=== PATIENT | male | born 1970 | race Caucasian/White ===

== ENCOUNTER 2019-02-16 16:11 | Inpatient (IN) | payer MEDICAID ==
[~2019-02-16] VITALS: Ht 182.9 cm; Wt 93.2 kg
[~2019-02-16 16:11] MED LIST: ASPI81TA52 PO; BUPR300T54 PO; DILT180C53 PO; DILTIAZEM XT PO; DOXE50CA4 PO; FURO-150 PO; FURO40TA4 PO; GABA-532 PO; LISI-600 PO; NABU500T2 PO; POTA20TA19 PO
[2019-02-16] MEDS ORDERED: cloNIDine 0.1 mg tablet PO ONE (16:35)
[2019-02-16] MEDS ORDERED: ipratropium/albuterol 3ml nebule NEB ONE (16:35)
[2019-02-16] MEDS ORDERED: furosemide 10 MG/1 ML 10ml inj IV ONE (16:35)
[2019-02-16 16:41] LABS: BASOPHILS # (AUTO) 0.1 X10'3 (0-0.2); BASOPHILS % (AUTO) 0.9 % (0-1); EOSINOPHILS # (AUTO) 0.1 X10'3 (0-0.9); EOSINOPHILS % (AUTO) 1.2 % (0-6); HEMATOCRIT 44.5 % (42.0-52.0); HEMOGLOBIN 14.5 g/dl (14.0-17.9); LYMPHOCYTES # (AUTO) 1.2 X10'3 (1.1-4.8); LYMPHOCYTES % (AUTO) 18.2 % (21-51); MEAN CORPUSCULAR HEMOGLOBIN 26.5 PG (27.0-31.0); MEAN CORPUSCULAR HGB CONC 32.5 g/dL (33.0-36.5); MEAN CORPUSCULAR VOLUME 81.5 FL (78-98); MEAN PLATELET VOLUME 7.2 FL (7.4-10.4); MONOCYTES # (AUTO) 0.4 X10'3 (0-0.9); MONOCYTES % (AUTO) 6.4 % (2-12); NEUTROPHILS # (AUTO) 4.7 X10'3 (1.8-7.7); NEUTROPHILS % (AUTO) 73.3 % (42-75); PLATELET COUNT 287 X10'3 (140-440); RED BLOOD COUNT 5.46 X10'6 (4.70-6.10); RED CELL DISTRIBUTION WIDTH 15.9 % (11.5-14.5); WHITE BLOOD COUNT 6.4 X10'3 (4.5-11.0)
[2019-02-16] MEDS ORDERED: carvedilol 6.25mg tablet PO ONE (16:45)
[2019-02-16 16:47] LABS: PARTIAL THROMBOPLASTIN TIME 30 SECONDS (22-32)
[2019-02-16 16:50] LABS: ALANINE AMINOTRANSFERASE 86 U/L (12-78); ALBUMIN 3.7 G/DL (3.4-5.0); ALKALINE PHOSPHATASE 121 IU/L (46-116); ANION GAP 11 (8-16); ASPARTATE AMINO TRANSFERASE 42 U/L (10-37); BILIRUBIN,TOTAL 1.5 MG/DL (0.1-1.0); BLOOD UREA NITROGEN 11 MG/DL (7-18); CHLORIDE 101 MMOL/L (99-107); CREATININE 1.37 MG/DL (0.60-1.10); GLUCOSE 117 MG/DL (70-104); POTASSIUM 4.1 MMOL/L (3.5-5.1); SODIUM 136 MMOL/L (135-145); TOTAL CARBON DIOXIDE 23.6 MMOL/L (24-32); TOTAL PROTEIN 7.3 G/DL (6.4-8.2); eGFR 55 ML/MIN
[2019-02-16] MEDS ORDERED: LISI40TA4 PO (18:30)
[2019-02-16] MEDS ORDERED: CARV6.252 PO (18:30)
[2019-02-16] MEDS ORDERED: FURO-150 PO (18:37)
[2019-02-16] MEDS ORDERED: POTA20TA19 PO (18:37)
--- NOTE | 2019-02-16 20:15 | NUR ---
dr green at bedside for admission. pts family now gone for the night. current vss.
[2019-02-16] MEDS ORDERED: NO HOME MEDS (20:27)
[2019-02-16] MEDS ORDERED: ondansetron/PF 4mg/2ml inj IV PRN (20:35)
[2019-02-16] MEDS ORDERED: magnesium hydroxide 30ml (MOM) UD suspension PO PRN (20:35)
[2019-02-16] MEDS ORDERED: mag hydrox/Alum hydrox/simeth 30ml oral suspension PO PRN (20:35)
[2019-02-16] MEDS ORDERED: acetaminophen 325mg tablet PO PRN (20:35)
--- NOTE | 2019-02-16 21:20 | NUR ---
Patient in room PCU 3013. I have received report from Breanna GUILLEN (ER) and had the opportunity to ask questions and assume patient care. Patient arrived to telemetry via wheelchair. Oriented to room 3013B, Vital signs taken, patient given opportunity to ask questions. Fall precautions in place, call light within reach.
[2019-02-16 21:30] VITALS: BP 129/86
[2019-02-16 23:00] VITALS: BP 109/61
[2019-02-16] MEDS: HYDROcodone/acetaminophen 5mg/325mg tablet PO PRN (23:51)
[2019-02-17 03:00] VITALS: BP 150/107
--- NOTE | 2019-02-17 06:00 | NUR ---
Patient in room PCU 3013. I have received report from MINDY Mckay and had the opportunity to ask questions and assume patient care. Patient is currently resting in bed, bed locked and low, call light in reach, no acute distress, will continue to monitor.
[2019-02-17 06:07] LABS: BASOPHILS # (AUTO) 0.1 X10'3 (0-0.2); BASOPHILS % (AUTO) 1.2 % (0-1); EOSINOPHILS # (AUTO) 0.1 X10'3 (0-0.9); EOSINOPHILS % (AUTO) 1.8 % (0-6); HEMATOCRIT 39.4 % (42.0-52.0); LYMPHOCYTES # (AUTO) 1.2 X10'3 (1.1-4.8); LYMPHOCYTES % (AUTO) 23.8 % (21-51); MEAN CORPUSCULAR HEMOGLOBIN 26.2 PG (27.0-31.0); MEAN CORPUSCULAR VOLUME 79.6 FL (78-98); MEAN PLATELET VOLUME 7.3 FL (7.4-10.4); MONOCYTES # (AUTO) 0.4 X10'3 (0-0.9); MONOCYTES % (AUTO) 8.2 % (2-12); NEUTROPHILS # (AUTO) 3.2 X10'3 (1.8-7.7); PLATELET COUNT 238 X10'3 (140-440); RED BLOOD COUNT 4.95 X10'6 (4.70-6.10); RED CELL DISTRIBUTION WIDTH 15.4 % (11.5-14.5)
[2019-02-17 06:19] LABS: ALANINE AMINOTRANSFERASE 67 U/L (12-78); ALBUMIN 3.2 G/DL (3.4-5.0); ALKALINE PHOSPHATASE 108 IU/L (46-116); ANION GAP 11 (8-16); ASPARTATE AMINO TRANSFERASE 28 U/L (10-37); BLOOD UREA NITROGEN 21 MG/DL (7-18); BUN/CREATININE RATIO 15.3 (5.4-32.0); CALCIUM 8.8 MG/DL (8.5-10.1); CHLORIDE 101 MMOL/L (99-107); CREATININE 1.37 MG/DL (0.60-1.10); GLUCOSE 100 MG/DL (70-104); POTASSIUM 3.7 MMOL/L (3.5-5.1); SODIUM 137 MMOL/L (135-145); TOTAL CARBON DIOXIDE 24.9 MMOL/L (24-32); TOTAL PROTEIN 6.5 G/DL (6.4-8.2); eGFR 55 ML/MIN
--- NOTE | 2019-02-17 06:25 | NUR ---
Problems reprioritized. Patient report given, questions answered & plan of care reviewed with Deepa GUILLEN and Shivani GUILLEN.
[2019-02-17] MEDS: heparin, porcine 5000 units/ml vial SQ SCH ×2 (08:16→20:53)
[2019-02-17] MEDS: carVEDilol 3.125mg tablet PO SCH ×2 (08:17→20:50)
[2019-02-17] MEDS: lisinopril 2.5mg tablet PO SCH ×2 (08:20→20:54)
[2019-02-17] MEDS: HYDROcodone/acetaminophen 5mg/325mg tablet PO PRN ×2 (08:22→14:58)
[2019-02-17] MEDS: furosemide 10 MG/1 ML 10ml inj IV SCH ×2 (08:28→20:00)
[2019-02-17 11:21] LABS: URINE AMPHETAMINE SCREEN NEGATIVE (Neg); URINE BARBITUATE SCREEN NEGATIVE (Neg); URINE BENZODIAZEPINES SCREEN NEGATIVE (Neg); URINE CANNABINOID SCREEN NEGATIVE (Neg); URINE COCAINE SCREEN NEGATIVE (Neg); URINE METHADONE SCREEN NEGATIVE (Neg); URINE OPIATE SCREEN NEGATIVE (Neg); URINE PHENCYCLIDINE SCREEN NEGATIVE (Neg)
--- NOTE | 2019-02-17 17:50 | NUR ---
I have reviewed and agree with all interventions, assessments performed and documented by Deepa Branch RN. Addendum: 02/17/19 at 1751 by Shivani Love RN Amended: Links added.
--- NOTE | 2019-02-17 18:33 | NUR ---
Problems reprioritized. Patient report given, questions answered & plan of care reviewed with MINDY Capellan. Patient currently resting in bed, bed locked and low, call light in reach, no acute distress, stable at shift change.
--- NOTE | 2019-02-17 18:35 | NUR ---
Problems reprioritized. Patient report given, questions answered & plan of care reviewed with MINDY Pratt. Addendum: 02/17/19 at 1836 by Shivani Love RN Amended: Links added.
[2019-02-17 19:00] VITALS: BP 98/63
[2019-02-17 23:00] VITALS: BP 118/76
[2019-02-18 03:00] VITALS: BP 112/72
[2019-02-18 06:00] VITALS: BP 121/76
[2019-02-18 06:04] LABS: BASOPHILS % (AUTO) 0.6 % (0-1); EOSINOPHILS # (AUTO) 0.1 X10'3 (0-0.9); EOSINOPHILS % (AUTO) 2.2 % (0-6); HEMATOCRIT 45.9 % (42.0-52.0); HEMOGLOBIN 14.9 g/dl (14.0-17.9); LYMPHOCYTES # (AUTO) 1.1 X10'3 (1.1-4.8); LYMPHOCYTES % (AUTO) 17.3 % (21-51); MEAN CORPUSCULAR HEMOGLOBIN 26.3 PG (27.0-31.0); MEAN CORPUSCULAR HGB CONC 32.5 g/dL (33.0-36.5); MEAN CORPUSCULAR VOLUME 80.9 FL (78-98); MEAN PLATELET VOLUME 7.3 FL (7.4-10.4); MONOCYTES # (AUTO) 0.5 X10'3 (0-0.9); MONOCYTES % (AUTO) 8.7 % (2-12); NEUTROPHILS # (AUTO) 4.4 X10'3 (1.8-7.7); NEUTROPHILS % (AUTO) 71.2 % (42-75); PLATELET COUNT 296 X10'3 (140-440); RED BLOOD COUNT 5.68 X10'6 (4.70-6.10); RED CELL DISTRIBUTION WIDTH 15.3 % (11.5-14.5); WHITE BLOOD COUNT 6.2 X10'3 (4.5-11.0)
--- NOTE | 2019-02-18 06:31 | NUR ---
Patient in room PCU 3013. I have received report from Terence GUILLEN and had the opportunity to ask questions and assume patient care. Patient is in bed sleeping, all needs met at this time
[2019-02-18 06:33] LABS: ALANINE AMINOTRANSFERASE 65 U/L (12-78); ALBUMIN 3.9 G/DL (3.4-5.0); ALKALINE PHOSPHATASE 125 IU/L (46-116); ANION GAP 10 (8-16); ASPARTATE AMINO TRANSFERASE 25 U/L (10-37); BILIRUBIN,TOTAL 1.1 MG/DL (0.1-1.0); BLOOD UREA NITROGEN 33 MG/DL (7-18); BUN/CREATININE RATIO 21.6 (5.4-32.0); CALCIUM 8.7 MG/DL (8.5-10.1); CHLORIDE 97 MMOL/L (99-107); CREATININE 1.53 MG/DL (0.60-1.10); GLUCOSE 78 MG/DL (70-104); MAGNESIUM 1.8 MG/DL (1.5-2.4); SODIUM 138 MMOL/L (135-145); TOTAL CARBON DIOXIDE 31.4 MMOL/L (24-32); eGFR 49 ML/MIN
[2019-02-18] MEDS: furosemide 10 MG/1 ML 10ml inj IV SCH ×2 (07:16→21:15)
[2019-02-18] MEDS: carVEDilol 3.125mg tablet PO SCH ×2 (07:16→21:15)
[2019-02-18] MEDS: lisinopril 2.5mg tablet PO SCH ×2 (07:16→21:15)
[2019-02-18] MEDS: heparin, porcine 5000 units/ml vial SQ SCH ×2 (07:17→21:15)
[2019-02-18] MEDS: HYDROcodone/acetaminophen 5mg/325mg tablet PO PRN (07:58)
--- NOTE | 2019-02-18 08:06 | NUR ---
PAGER ID: [phone] MESSAGE: [id number] Jose Carlos Guerrero MRSA positive nares. FYI. Farrar/Kirk [id number]
[2019-02-18 11:00] VITALS: BP 109/74
[2019-02-18 15:00] VITALS: BP 103/51
[2019-02-18 18:00] VITALS: BP 104/52
--- NOTE | 2019-02-18 18:00 | NUR ---
Patient in room PCU 3013. I have received report from Karolina GUILLEN, and had the opportunity to ask questions and assume patient care.
--- NOTE | 2019-02-18 18:07 | NUR ---
[place] medication administration and chart documentation reviewed from Kirk GUILLEN by Franci GUILLEN. Constructive criticism given as needed.
--- NOTE | 2019-02-18 18:16 | NUR ---
Problems reprioritized. Patient report given, questions answered & plan of care reviewed with Terence GUILLEN.
[2019-02-18 23:00] VITALS: BP 126/69
[2019-02-19 03:00] VITALS: BP 133/89
[2019-02-19 05:14] LABS: BASOPHILS # (AUTO) 0.1 X10'3 (0-0.2); BASOPHILS % (AUTO) 1.2 % (0-1); EOSINOPHILS # (AUTO) 0.1 X10'3 (0-0.9); EOSINOPHILS % (AUTO) 1.9 % (0-6); HEMATOCRIT 47.7 % (42.0-52.0); HEMOGLOBIN 15.5 g/dl (14.0-17.9); LYMPHOCYTES # (AUTO) 1.6 X10'3 (1.1-4.8); LYMPHOCYTES % (AUTO) 24.8 % (21-51); MEAN CORPUSCULAR HEMOGLOBIN 26.3 PG (27.0-31.0); MEAN CORPUSCULAR HGB CONC 32.4 g/dL (33.0-36.5); MEAN CORPUSCULAR VOLUME 81.2 FL (78-98); MEAN PLATELET VOLUME 7.2 FL (7.4-10.4); MONOCYTES # (AUTO) 0.7 X10'3 (0-0.9); MONOCYTES % (AUTO) 10.7 % (2-12); NEUTROPHILS # (AUTO) 3.9 X10'3 (1.8-7.7); NEUTROPHILS % (AUTO) 61.4 % (42-75); PLATELET COUNT 303 X10'3 (140-440); RED BLOOD COUNT 5.88 X10'6 (4.70-6.10); RED CELL DISTRIBUTION WIDTH 15.1 % (11.5-14.5); WHITE BLOOD COUNT 6.3 X10'3 (4.5-11.0)
[2019-02-19 05:30] LABS: ALANINE AMINOTRANSFERASE 57 U/L (12-78); ALBUMIN 3.9 G/DL (3.4-5.0); ALKALINE PHOSPHATASE 130 IU/L (46-116); ANION GAP 7 (8-16); ASPARTATE AMINO TRANSFERASE 21 U/L (10-37); BILIRUBIN,TOTAL 0.9 MG/DL (0.1-1.0); BLOOD UREA NITROGEN 37 MG/DL (7-18); BUN/CREATININE RATIO 24.5 (5.4-32.0); CALCIUM 9.1 MG/DL (8.5-10.1); CHLORIDE 97 MMOL/L (99-107); CREATININE 1.51 MG/DL (0.60-1.10); GLUCOSE 67 MG/DL (70-104); POTASSIUM 3.8 MMOL/L (3.5-5.1); SODIUM 137 MMOL/L (135-145); TOTAL CARBON DIOXIDE 32.8 MMOL/L (24-32); eGFR 50 ML/MIN
[2019-02-19 06:00] VITALS: BP 128/76
--- NOTE | 2019-02-19 06:00 | NUR ---
Patient in room PCU 3013. I have received report from Terence GUILLEN and had the opportunity to ask questions and assume patient care.
--- NOTE | 2019-02-19 06:20 | NUR ---
Problems reprioritized. Patient report given, questions answered & plan of care reviewed with MINDY Leyva.
[2019-02-19] MEDS: furosemide 10 MG/1 ML 10ml inj IV SCH (08:46)
[2019-02-19] MEDS: heparin, porcine 5000 units/ml vial SQ SCH (08:46)
[2019-02-19] MEDS: lisinopril 2.5mg tablet PO SCH (08:47)
[2019-02-19] MEDS: carVEDilol 3.125mg tablet PO SCH (08:47)
[2019-02-19] MEDS: HYDROcodone/acetaminophen 5mg/325mg tablet PO PRN (09:52)
[2019-02-19 11:11] VITALS: BP 148/92
[2019-02-19 11:35] VITALS: BP_SYST 128
[2019-02-19] MEDS ORDERED: lisinopril 2.5mg tablet PO SCH (11:35)
[2019-02-19] MEDS ORDERED: FURO40TA4 PO (15:15)
[2019-02-19] MEDS ORDERED: LISI2.5T2 PO (15:15)
[2019-02-19] MEDS ORDERED: COR3.125T PO (15:15)
--- NOTE | 2019-02-19 16:20 | NUR ---
MEDICATIONS CALLED INTO [facility] IN [place], [place]
--- NOTE | 2019-02-19 16:40 | NUR ---
Pt DCd home with sister. IV removed, canula intact. Tele-box removed and returned to tele-tech. DC paperwork gone over with Pt and sister. Allowed Pt and sister to ask questions concerning the discharge paperwork and answered them. New meds called into [facility] on [address]. Follow up appt was made with Dr. Appiah for 03/04/19 at 1020 at [facility]. Life Vest was dropped off by rep and applied to Pt. Instructions were given to Pt by Life vest rep. Pt belongings gathered and sent with Pt. Pt wheeled down to lobby via wheel chair and left with sister via private vehicle.
[2019-02-19] MEDS ORDERED: furosemide 40mg tablet PO SCH (20:00)
== END 2019-02-19 16:40 | disposition home or self-care (01) | DRG 194 ==
LOC: ER 16:11 → EDBEDREQSVC 20:50 → PCU 3S 20:56 → CMPBEDREQ 02-17 01:50
PROVIDERS: ADMIT Internal Medicine; ATTEND Family Medicine
DX: I13.0 Hypertensive heart and chronic kidney disease with heart failure and stage 1 through stage 4 chronic kidney disease, or unspecified chronic kidney disease (principal); N17.9 Acute kidney failure, unspecified; J44.9 Chronic obstructive pulmonary disease, unspecified; I50.23 Acute on chronic systolic (congestive) heart failure; N18.9 Chronic kidney disease, unspecified; Z86.718 Personal history of other venous thrombosis and embolism; I25.2 Old myocardial infarction
CPT/HCPCS: 36415; 71045; 73521; 80053; 80305; 83735; 83880; 84484; 85025; 85610; 85730; 87081; 93005; 93306; 94640; 94760; 96374; 99285; G0378; J1644; J1940

== ENCOUNTER 2019-02-24 08:54 | Outpatient (CLI) | payer MEDICAID ==
[~2019-02-24 08:54] MED LIST changes: -ASPI81TA52 PO; -BUPR300T54 PO; +COR3.125T PO; -DILT180C53 PO; -DILTIAZEM XT PO; -DOXE50CA4 PO; -FURO-150 PO; -GABA-532 PO; -LISI-600 PO; +LISI2.5T2 PO; -NABU500T2 PO; +NO HOME MEDS; -POTA20TA19 PO
[2019-02-24 09:36] LABS: ALBUMIN 4.1 G/DL (3.4-5.0); ANION GAP 5 (8-16); BLOOD UREA NITROGEN 19 MG/DL (7-18); BUN/CREATININE RATIO 16.8 (5.4-32.0); CALCIUM 9.3 MG/DL (8.5-10.1); CHLORIDE 98 MMOL/L (99-107); CREATININE 1.13 MG/DL (0.60-1.10); GLUCOSE 113 MG/DL (70-104); POTASSIUM 4.4 MMOL/L (3.5-5.1); SODIUM 135 MMOL/L (135-145); TOTAL CARBON DIOXIDE 32.1 MMOL/L (24-32); eGFR 69 ML/MIN
== END 2019-02-24 23:59 | disposition home or self-care (01) ==
LOC: LAB 08:54
PROVIDERS: ATTEND Internal Medicine
DX: I50.9 Heart failure, unspecified (principal); J44.9 Chronic obstructive pulmonary disease, unspecified; Z87.891 Personal history of nicotine dependence
CPT/HCPCS: 36415; 80048